=== PATIENT | female | born 2005 | race Caucasian/White ===

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

== ENCOUNTER 2025-08-14 13:43 | Outpatient (AMB) | payer OTHER, SELFPAY ==
--- NOTE | 2025-08-14 13:51 | MHC.OFFVIS ---
Vital Signs 08/14/25 13:52 Height 5 ft 9 in Weight 110 lb 3.698 oz BMI 16.3 BP 93/56 L Blood Pressure Location Lt brachial Position Sitting Pulse 66 Intake Visit Reasons: 6 mo f/u IBD (inflammatory bowel disease) Intake Note: Cici presents in the office as a follow up for IBD. CC: States that she has had no changes - she feels the same as the last visit. Mobile Ui Developer Required: No Allergies amoxicillin Allergy (Mild, Verified 11/21/24 13:37) Unknown Penicillins Allergy (Mild, Verified 11/21/24 13:37) Unknown HPI Comments Details: 18 y.o F with PMH of IBD who is originally from [facility], here studying in [employer]. Virtual visit to establish care. IBD Hx: Location: Ulcerative proctitis Age/yr of diagnosis: 13 y/o / 2018 Prev meds: Current meds: low dose naltrexone 4.5 mg Diet: SCD Steroid use: 2012 Surgeries: No Recent endoscopy: 2023 - normal. Also had VCE at the same time which was normal. Recent imaging: EIM: Skin rash Fam hx: Mat grandfather UC, mat aunt UC. Dx is unclear - favor crohns vs indeterminate colitis as pt reports she initially had ulcerative proctitis but then evolved to have disease in small intestine as well. However, records summary from Dr Price's office states Dx as ulcerative proctitis only. Currently reports having abd pain most days than not. Lower abd. Urgency +. Has 1 loose BM per day. Reports was having similar sx at the time of last endoscopic procedure as well but all came out to be normal. Pt is on low dose naltrexone for tx and on specific carbohydrate diet. Smokes marijuana. No tobacco. No etOh use. Sexually active. 12/26/24: Following up as a televisit again. Reports feeling fine . Knows dietary triggers so avoids them. No abd pain. Has 1-2 BM per day. No joint pains or vision changes. Planning to go back home in [place] for summer vacation. Has an appointment with her regular change number operator for summertime. 08/14/25: She was last seen in the spring and reports that while traveling over the summer, she experienced symptoms including constipation, mucus in her stool, and some blood after dietary indiscretions. The last episode of these symptoms occurred in late March, and she has had no blood in her stool for the past three months. Her current bowel regimen is two formed stools per day, which is her normal. The patient distinguishes her current symptoms from her typical ulcerative proctitis, describing the current discomfort as cramping pain higher up in her abdomen. Pain is fleeting and sharp as opposed to dull and crampy with proctitis flare. She has been following a Specific Carbohydrate Diet since seventh grade, but notes difficulty with strict adherence, which precipitates her symptoms. Her last endoscopy and colonoscopy in 2023 were unremarkable. Her medications include naltrexone 4.5 mg taken twice daily, prescribed by her holistic health practitioner Oxana Law in [place]. She has previously tried oral and enema steroids without significant relief. She also takes multiple supplements, including vitamins A, B12, D, E, CoQ10, magnesium glycinate, 5-HTP, and quercetin. The patient also reports significant fatigue, which impacts her ability to exercise and perform daily activities. --- Pt was informed and consented to the use of ambient scribe for this encounter. --- [facility] Surgical History Hx of colonoscopy Hx of endoscopy Review of Systems Const All systems reviewed & are unremarkable except as noted in HPI and below Physical Exam Vital Signs: Last Vital Signs Pulse 66 08/14/25 13:52 BP 93/56 L 08/14/25 13:52 BMI result Body Mass Index 16.3 Assessment & Plan Assessment & Plan (1) IBD (inflammatory bowel disease): Code(s): K52.9 - Noninfective gastroenteritis and colitis, unspecified Category: Medical (2) Ulcerative proctitis: Code(s): K51.20 - Ulcerative (chronic) proctitis without complications Category: Medical (3) Abdominal pain: Code(s): R10.9 - Unspecified abdominal pain Plan 1. Ulcerative Proctitis with suspected Irritable Bowel Syndrome (IBS) Overlap The patient's symptoms of upper abdominal cramping appear more consistent with IBS than a proctitis flare, especially given their relationship to diet and the normal findings on her last colonoscopy. Plan: - Check stool fecal calpro - If elevated, will proceed with flex sig - If normal, trial of TCA such as low-dose nortriptyline. - OK to continue naltrexone 4.5 mg BID as prescribed by her holistic provider. - Continue Specific Carbohydrate Diet as tolerated. - Nutrition - Iron, albumin, vitamin-D normal. - Immunization - Up to date per her recall - Bone health - Not applicable. Young female with no hx of longstanding corticosteroid exposure or small bowel disease - Cancer screening - IBD dysplasia - not applicable for limited l sided UC Follow-up in 3 months Orders: Orders Calprotectin, Fecal Today K52.9 - Noninfective gastroenteritis and colitis, unspecified C Reactive Protein Today K52.9 - Noninfective gastroenteritis and colitis, unspecified Coding Level of Care Code Est Pt Level 4 (74315) Diagnoses IBD (inflammatory bowel disease) K52.9 Ulcerative proctitis K51.20 Abdominal pain R10.9
[2025-08-14 13:52] VITALS: BP 93/56; PULSE 66; BMI 16.3
== END 2025-08-14 14:16 | disposition home or self-care (01) ==
LOC: HO.HGI 13:44
PROVIDERS: Visit Provider Internal Medicine
DX: K52.9 Noninfective gastroenteritis and colitis, unspecified (principal); K51.20 Ulcerative (chronic) proctitis without complications; R10.9 Unspecified abdominal pain
CPT/HCPCS: 99214